=== PATIENT | female | born 1945 ===

== ENCOUNTER → 2018-03-05 | Outpatient (REF) | payer MEDICAID ==
[2018-03-05 18:54] LABS: AMORPHOUS SEDIMENT LARGE (NEGATIVE); BACTERIA, URINE AUTO 1+ (NEGATIVE); RBC, URINE AUTO 3 /HPF (0-3); SQUAMOUS EPITHELIAL CELL UR AU 4 /HPF (0-6); WBC, URINE AUTO 114 /HPF (0-3)
== END ==
LOC: M LAB REF 16:35
DX: N39.0 Urinary tract infection, site not specified (principal)

== ENCOUNTER → 2018-04-03 | Outpatient (REF) | payer MEDICAID ==
[2018-04-03 14:18] LABS: CHLAMYDIA DNA AMPLIFICATION NEGATIVE (NEGATIVE); GC DNA AMPLIFICATION NEGATIVE (NEGATIVE)
== END ==
LOC: M LAB REF 11:51
DX: B37.3 Candidiasis of vulva and vagina (principal)
CPT/HCPCS: 87086